=== PATIENT | female | born 1945 | race Caucasian/White ===

== ENCOUNTER 2021-12-14 04:36 | Day surgery (SDC) | payer OTHER ==
[2021-12-14] MEDS ORDERED: POVIDONE-IODINE 5% OPHTHALMIC PREP 30 ML SOLUTION ONE (07:23)
[2021-12-14] MEDS ORDERED: TETRACAINE 0.5% OPHTH SOLN 2 ML BOTTLE ONE (07:23)
[2021-12-14] MEDS ORDERED: TRIAMCINOLONE ACET 40MG/1ML VIAL ONE (07:27)
[2021-12-14] MEDS ORDERED: LIDOCAINE 1%/EPI 1:100000 (20 ML MULTI DOSE VIAL) ONE (07:28)
[2021-12-14] MEDS ORDERED: ACETAMINOPHEN 325 MG TABLET (FP) PO PRN ×2 (08:21→08:48)
[2021-12-14] MEDS ORDERED: TROPICAMIDE 1% OPHTH SOLN 15 ML BOTTLE ONE (10:23)
[2021-12-14] MEDS ORDERED: KETOROLAC TROMETHAMINE 0.5% EYE DROP 1 DROP DROPS ONE (10:23)
[2021-12-14] MEDS ORDERED: CYCLOPENTOLATE HCL 1% OPHTH SOLN 2 ML BOTTLE ONE ×2 (10:23→10:24)
[2021-12-14] MEDS ORDERED: OFLOXACIN 0.3% OPHTHALMIC SOLUTION 5 ML BOTTLE ONE (10:23)
[2021-12-14] MEDS ORDERED: PHENYLEPHRINE 2.5% OPTHALMIC DROP BOTTLE ONE ×2 (10:23→10:24)
[2021-12-14] MEDS ORDERED: LIDOCAINE HCL 2% JELLY (5 ML/TUBE) ONE (10:26)
[2021-12-14] MEDS: TROPICAMIDE 1% OPHTH SOLN 15 ML BOTTLE OP SCH ×3 (10:30→10:40)
[2021-12-14] MEDS: PHENYLEPHRINE 2.5% OPHTH SOLN 15 ML BOTTLE OP SCH ×3 (10:30→10:40)
[2021-12-14] MEDS: OFLOXACIN 0.3% OPHTHALMIC SOLUTION 5 ML BOTTLE OP SCH ×5 (10:30→10:40)
[2021-12-14] MEDS: KETOROLAC TROMETHAMINE 0.5% EYE DROP 1 DROP DROPS OP SCH ×3 (10:30→10:40)
[2021-12-14] MEDS: CYCLOPENTOLATE HCL 1% OPHTH SOLN 2 ML BOTTLE OP SCH (10:35)
[2021-12-14] MEDS ORDERED: LIDOCAINE HCL 2% JELLY (5 ML/TUBE) TP ONE ×2 (12:05→12:10)
[2021-12-14] MEDS ORDERED: MIDAZOLAM HCL 2 MG/2 ML SINGLE DOSE VIAL ONE (12:11)
[2021-12-14] MEDS ORDERED: POVIDONE-IODINE 5% OPHTHALMIC PREP 30 ML SOLUTION OD ONE (12:16)
[2021-12-14] MEDS ORDERED: TRIAMCINOLONE ACETONIDE 40 MG/ML 10 ML VIAL IJ ONE ×3 (12:18→12:22)
[2021-12-14] MEDS ORDERED: LIDOCAINE 1%/EPI 1:100000 (20 ML MULTI DOSE VIAL) IJ ONE ×2 (12:20→12:25)
[2021-12-14 15:28] VITALS: BP 103/51; PULSE 72; TEMP 97.9
== END 2021-12-14 14:15 | disposition home or self-care (01) ==
LOC: JASU-SURG 04:36
PROVIDERS: ATTEND Ophthalmology
PROC: 08U007Z Supplement of Right Eye with Autologous Tissue Substitute, Open Approach (ICD-10-PCS; principal; 2021-12-14 12:00)
DX: H11.0 Pterygium of eye (principal)
CPT/HCPCS: 88304-TC

== ENCOUNTER 2022-04-26 06:45 | Day surgery (SDC) | payer OTHER ==
[~2022-04-26 06:45] MED LIST: ACETAMINOPHEN 325 MG TABLET (FP) PO PRN; LIDOCAINE 1%/EPI 1:100000 (20 ML MULTI DOSE VIAL) IJ ONE; TRIAMCINOLONE ACET 40MG/1ML VIAL IJ ONE
[2022-04-26] MEDS ORDERED: OFLOXACIN 0.3% OPHTHALMIC SOLUTION 5 ML BOTTLE ONE (09:30)
[2022-04-26] MEDS: OFLOXACIN 0.3% OPHTHALMIC SOLUTION 5 ML BOTTLE OP SCH ×3 (09:40→10:05)
[2022-04-26 09:44] VITALS: BMI 16.9
[2022-04-26 09:47] VITALS: RESP 18
[2022-04-26] MEDS ORDERED: LIDOCAINE HCL 1% EPINEPHRINE 1:200,000 30 ML VIAL (PF) ONE (11:12)
[2022-04-26] MEDS ORDERED: LIDOCAINE HCL 2% JELLY (5 ML/TUBE) ONE (11:12)
[2022-04-26] MEDS ORDERED: LIDOCAINE 1%/EPI 1:100000 (20 ML MULTI DOSE VIAL) ONE (11:22)
[2022-04-26] MEDS ORDERED: TRIAMCINOLONE ACET 40MG/1ML VIAL ONE (11:29)
[2022-04-26] MEDS ORDERED: MIDAZOLAM HCL 2 MG/2 ML SINGLE DOSE VIAL ONE (11:35)
[2022-04-26] MEDS ORDERED: TETRACAINE 0.5% OPHTH SOLN 2 ML BOTTLE OS ONE (11:39)
[2022-04-26] MEDS ORDERED: POVIDONE-IODINE 5% OPHTHALMIC PREP 30 ML SOLUTION ONE (11:40)
[2022-04-26] MEDS ORDERED: POVIDONE-IODINE 5% OPHTHALMIC PREP 30 ML SOLUTION OS ONE (11:41)
[2022-04-26] MEDS ORDERED: LIDOCAINE 1%/EPI 1:100000 (20 ML MULTI DOSE VIAL) IJ ONE ×2 (11:49)
[2022-04-26] MEDS ORDERED: KETOROLAC TROMETHAMINE 30 MG/1 ML VIAL ONE (11:50)
[2022-04-26] MEDS ORDERED: TRIAMCINOLONE ACET 40MG/1ML VIAL IJ ONE (12:14)
[2022-04-26 13:26] VITALS: BP 115/58; PULSE 66; TEMP 97.9
== END 2022-04-26 13:35 | disposition home or self-care (01) ==
LOC: JASU-SURG 06:45
PROVIDERS: ATTEND Ophthalmology
PROC: 08U107Z Supplement of Left Eye with Autologous Tissue Substitute, Open Approach (ICD-10-PCS; principal; 2022-04-26 11:00)
DX: H11.002 Unspecified pterygium of left eye (principal); E11.9 Type 2 diabetes mellitus without complications; Z79.84 Long term (current) use of oral hypoglycemic drugs
CPT/HCPCS: 82962; 88304-TC

== ENCOUNTER 2023-08-22 04:26 | Day surgery (SDC) | payer OTHER ==
[2023-08-21 10:23] VITALS: BMI 20.7
[2023-08-22] MEDS: TETRACAINE 0.5% OPHTH SOLN 2 ML BOTTLE OD ONE
[2023-08-22] MEDS ORDERED: POVIDONE-IODINE 5% OPHTHALMIC PREP 30 ML SOLUTION ONE (07:27)
[2023-08-22] MEDS ORDERED: LIDOCAINE HCL/PF 1% SDV 5ML VIAL ONE (07:27)
[2023-08-22] MEDS ORDERED: KETOROLAC TROMETHAMINE 0.5% EYE DROP 1 DROP DROPS ONE (08:08)
[2023-08-22] MEDS ORDERED: CYCLOPENTOLATE HCL 1% OPHTH SOLN 2 ML BOTTLE ONE (08:08)
[2023-08-22] MEDS ORDERED: TROPICAMIDE 1% OPHTH SOLN 15 ML BOTTLE ONE (08:08)
[2023-08-22] MEDS ORDERED: PHENYLEPHRINE 2.5% OPTHALMIC DROP 2ML BOTTLE ONE (08:08)
[2023-08-22] MEDS ORDERED: OFLOXACIN 0.3% OPHTHALMIC SOLUTION 5 ML BOTTLE ONE (08:09)
[2023-08-22] MEDS ORDERED: ACETAMINOPHEN 325 MG TABLET (FP) PO PRN (08:57)
[2023-08-22] MEDS: TROPICAMIDE 1% OPHTH SOLN 15 ML BOTTLE OP SCH (09:00)
[2023-08-22] MEDS: PHENYLEPHRINE 2.5% OPHTH SOLN 15 ML BOTTLE OP SCH (09:00)
[2023-08-22] MEDS: KETOROLAC TROMETHAMINE 0.5% EYE DROP 1 DROP DROPS OP SCH (09:00)
[2023-08-22] MEDS: CYCLOPENTOLATE HCL 1% OPHTH SOLN 2 ML BOTTLE OP SCH (09:00)
[2023-08-22] MEDS: OFLOXACIN 0.3% OPHTHALMIC SOLUTION 5 ML BOTTLE OP SCH (09:00)
[2023-08-22] MEDS ORDERED: PROPOFOL 20 ML ONE (10:50)
[2023-08-22] MEDS: LIDOCAINE HCL/PF 2% SDV 5ML VIAL SQ ONE ×3 (11:15)
[2023-08-22] MEDS: BUPIVACAINE HCL/PF 0.75% 10 ML VIAL NR ONE ×3 (11:15)
[2023-08-22] MEDS: POVIDONE-IODINE 5% OPHTHALMIC PREP 30 ML SOLUTION OD ONE ×2 (11:19)
[2023-08-22] MEDS: EPINEPHrine/PF 1 MG/1 ML (1:1,000) AMPULE SQ ONE ×2 (11:27)
[2023-08-22] MEDS: BSS (NA/CA/MG/K) BALANCED SALT SOLUTION OPHTH SOLN 15 ML BOTTLE OD ONE ×2 (11:27)
[2023-08-22] MEDS: LIDOCAINE HCL 1% PRESERVATIVE FREE - 30ML VIAL IO ONE ×2 (11:28)
[2023-08-22] MEDS: CHONDROITIN SU A/HYALUR SOD 1 KIT IO ONE ×2 (11:28)
[2023-08-22] MEDS: TRYPAN BLUE 0.5 ML DISP.SYRIN IO ONE (11:29)
[2023-08-22 13:27] VITALS: BP 117/64; PULSE 66; RESP 20; TEMP 98
== END 2023-08-22 12:30 | disposition home or self-care (01) ==
LOC: JASU-SURG 04:26
PROVIDERS: ATTEND Ophthalmology
PROC: 08RJ3JZ Replacement of Right Lens with Synthetic Substitute, Percutaneous Approach (ICD-10-PCS; principal; 2023-08-22 09:00)
DX: H26.9 Unspecified cataract (principal)
CPT/HCPCS: 82962; V2632

== ENCOUNTER 2023-09-12 04:20 | Day surgery (SDC) | payer OTHER ==
[2023-09-07 15:50] VITALS: BMI 20.7
[~2023-09-12 04:20] MED LIST changes: -LIDOCAINE 1%/EPI 1:100000 (20 ML MULTI DOSE VIAL) IJ ONE; -TRIAMCINOLONE ACET 40MG/1ML VIAL IJ ONE
[2023-09-12] MEDS ORDERED: EPINEPHrine/PF 1 MG/1 ML (1:1,000) AMPULE ONE (07:25)
[2023-09-12] MEDS ORDERED: LIDOCAINE HCL/PF 1% SDV 5ML VIAL ONE (07:25)
[2023-09-12] MEDS ORDERED: LIDOCAINE HCL/PF 2% SDV 5ML VIAL ONE (07:26)
[2023-09-12] MEDS ORDERED: BUPIVACAINE HCL/PF 0.75% 10 ML VIAL ONE (07:26)
[2023-09-12] MEDS ORDERED: POVIDONE-IODINE 5% OPHTHALMIC PREP 30 ML SOLUTION ONE (07:26)
[2023-09-12] MEDS ORDERED: KETOROLAC TROMETHAMINE 0.5% EYE DROP 1 DROP DROPS ONE (07:39)
[2023-09-12] MEDS ORDERED: CYCLOPENTOLATE HCL 1% OPHTH SOLN 2 ML BOTTLE ONE (07:39)
[2023-09-12] MEDS ORDERED: TROPICAMIDE 1% OPHTH SOLN 15 ML BOTTLE ONE (07:39)
[2023-09-12] MEDS ORDERED: OFLOXACIN 0.3% OPHTHALMIC SOLUTION 5 ML BOTTLE ONE (07:39)
[2023-09-12] MEDS ORDERED: PHENYLEPHRINE 2.5% OPTHALMIC DROP 2ML BOTTLE ONE (07:39)
[2023-09-12] MEDS: OFLOXACIN 0.3% OPHTHALMIC SOLUTION 5 ML BOTTLE OP SCH (08:00)
[2023-09-12] MEDS: KETOROLAC TROMETHAMINE 0.5% EYE DROP 1 DROP DROPS OP SCH (08:00)
[2023-09-12] MEDS: TROPICAMIDE 1% OPHTH SOLN 15 ML BOTTLE OP SCH (08:00)
[2023-09-12] MEDS: CYCLOPENTOLATE HCL 1% OPHTH SOLN 2 ML BOTTLE OP SCH (08:00)
[2023-09-12] MEDS: PHENYLEPHRINE 2.5% OPHTH SOLN 15 ML BOTTLE OP SCH (08:00)
[2023-09-12 08:03] VITALS: RESP 20
[2023-09-12] MEDS: BUPIVACAINE HCL/PF 0.75% 10 ML VIAL NR ONE (09:03)
[2023-09-12] MEDS: LIDOCAINE HCL/PF 2% SDV 5ML VIAL INF ONE (09:03)
[2023-09-12] MEDS: POVIDONE-IODINE 5% OPHTHALMIC PREP 30 ML SOLUTION OS ONE (09:06)
[2023-09-12] MEDS: LIDOCAINE HCL 1% PRESERVATIVE FREE - 30ML VIAL IO ONE (09:11)
[2023-09-12] MEDS: CHONDROITIN SU A/HYALUR SOD 1 KIT IO ONE (09:12)
[2023-09-12] MEDS: BSS (NA/CA/MG/K) BALANCED SALT SOLUTION OPHTH SOLN 15 ML BOTTLE IO ONE (09:13)
[2023-09-12] MEDS: TRYPAN BLUE 0.5 ML DISP.SYRIN IO ONE (09:15)
[2023-09-12] MEDS: EPINEPHrine 1:1,000 1,000 MCG/ML ML SQ ONE ×2 (09:21)
[2023-09-12 10:31] VITALS: BP 123/57; PULSE 75; TEMP 97.8
== END 2023-09-12 10:34 | disposition home or self-care (01) ==
LOC: JASU-SURG 04:20
PROVIDERS: ATTEND Ophthalmology
PROC: 08RK3JZ Replacement of Left Lens with Synthetic Substitute, Percutaneous Approach (ICD-10-PCS; principal; 2023-09-12 09:00)
DX: H26.9 Unspecified cataract (principal)
CPT/HCPCS: 82962; V2632